=== PATIENT | female | born 1965 | race Caucasian/White ===

== ENCOUNTER 2016-10-11 15:50 | Emergency (ER) | payer MEDICAID ==
[2016-05-31 10:30] VITALS: BMI 49.1
[~2016-10-11 15:50] MED LIST: ADVIL200 MG PO; ALTACE5 MG PO; AMITRIPTYLINE100 MG PO; DEXILANT60 MG PO; ELAVIL10 MG PO; ESTRADERM 0.00.05 MG TD; GLUCOPHAGE1000 MG PO; HYDROCHLOROTHIA25 MG PO; HYDROCODON-ACE1 EAC7 PO; HYDROCODONE-APA1 TAB PO; PEPCID20 MG PO; PERCOCET 10/3251 TA1 PO; PRILOSEC20 MG PO; SYNTHROID100 MCG PO; SYNTHROID125 MCG PO; TANZEUM50 MG/0.5 SC; TOPAMAX25 MG PO; TOPROL XL50 MG PO; ULTRAM50 MG PO; VALIUM5 MG PO; ZESTRIL10 MG PO; ZESTRIL20 MG PO; ZOLOFT50 MG PO; ZYRTEC10 M1 PO
== END 2016-10-11 17:53 | disposition home or self-care (01) ==
LOC: D.ER 15:50
DX: S29.012A Strain of muscle and tendon of back wall of thorax, initial encounter (principal); X58.XXXA Exposure to other specified factors, initial encounter; Y93.89 Activity, other specified; Y92.89 Other specified places as the place of occurrence of the external cause; J02.9 Acute pharyngitis, unspecified; I10 Essential (primary) hypertension; F32.9 Major depressive disorder, single episode, unspecified

== ENCOUNTER 2016-10-22 07:48 | Emergency (ER) | payer MEDICAID ==
[~2016-10-22 07:48] MED LIST changes: -SYNTHROID100 MCG PO
[2016-10-22 08:33] LABS: BASOPHILS 0.3 % (0.0-2.0); EOSINOPHILS 3.4 % (0-7); HEMATOCRIT 39.5 % (36.0-48.0); HEMOGLOBIN 12.9 g/dL (12-16); IMMATURE GRANULOCYTES 0.2 % (0-5); LYMPHOCYTES 19.8 % (15-50); MCH 28.3 pg (26.0-34.0); MCHC 32.7 g/dL (31.0-37.0); MCV 86.6 fL (80.0-100.0); MEAN PLATELET VOLUME 11.3 fL (7.4-10.4); MONOCYTES 7.3 % (2-11); PLATELET COUNT 245 10x3/uL (130-400); RBC 4.56 10x6/uL (4.00-5.40); RDW 14.9 % (11.5-14.5); WBC 10.2 10x3/uL (4.8-10.8)
[2016-10-22 08:43] LABS: ALBUMIN 2.9 g/dL (3.4-5.0); ANION GAP 12.7 mmol/L (8-16); BILIRUBIN - TOTAL 0.5 mg/dL (0.2-1.3); CALCIUM 9.3 mg/dL (8.5-10.1); CREATININE - SERUM 1.4 mg/dL (0.6-1.3); POTASSIUM - SERUM 3.7 mmol/L (3.5-5.1); PROTEIN - SERUM 8.4 g/dL (6.4-8.2)
[2016-10-22 11:19] LABS: APPEARANCE SLT CLOUDY (CLEAR); COLOR YELLOW (YELLOW); GLUCOSE NEGATIVE (NEGATIVE); LEUKOCYTE ESTERASE NEGATIVE (NEGATIVE); NITRITE NEGATIVE (NEGATIVE); PROTEIN 1+ mg/dL (NEGATIVE)
[2016-10-22 11:21] LABS: BACTERIA MODERATE /hpf (NONE SEEN); BILIRUBIN NEGATIVE (NEGATIVE); GRANULAR CAST OCC /lpf (NONE SEEN); HYALINE CAST 0-5 /lpf (NONE SEEN); KETONE NEGATIVE (NEGATIVE); MUCUS <1+ /lpf (NONE SEEN); RED CELLS - URINE NONE SEEN /hpf (0-5); UROBILINOGEN NORMAL (NORMAL); WHITE CELLS - URINE RARE /hpf (0-5)
== END 2016-10-22 11:05 | disposition home or self-care (01) ==
LOC: D.ER 07:48
PROVIDERS: Emergency Medicine
DX: K76.0 Fatty (change of) liver, not elsewhere classified (principal); K85.90 Acute pancreatitis without necrosis or infection, unspecified; I10 Essential (primary) hypertension; F32.9 Major depressive disorder, single episode, unspecified; E11.9 Type 2 diabetes mellitus without complications

== ENCOUNTER 2016-11-18 13:11 | Emergency (ER) | payer MEDICAID ==
[2016-05-31 10:30] VITALS: BMI 49.1
[~2016-11-18 13:11] MED LIST changes: +SYNTHROID100 MCG PO
== END 2016-11-18 16:26 | disposition home or self-care (01) ==
LOC: D.ER 13:11
DX: S60.221A Contusion of right hand, initial encounter (principal); X58.XXXA Exposure to other specified factors, initial encounter; Y93.89 Activity, other specified; Y92.89 Other specified places as the place of occurrence of the external cause; I10 Essential (primary) hypertension; F17.200 Nicotine dependence, unspecified, uncomplicated

== ENCOUNTER 2017-02-19 10:17 | Day surgery (SDC) | payer MEDICAID ==
[~2017-02-19] VITALS: Ht 175.3 cm; Wt 146.8 kg
[~2017-02-19 10:17] MED LIST changes: -SYNTHROID100 MCG PO
[2017-02-19 11:21] LABS: BASOPHILS 0.3 % (0-2); EOSINOPHILS 2.2 % (0-7); HEMATOCRIT 36.6 % (36.0-48.0); HEMOGLOBIN 12.5 g/dL (12-16); IMMATURE GRANULOCYTES 0.7 % (0-5); LYMPHOCYTES 30.2 % (15-50); MCH 28.6 pg (26.0-34.0); MCHC 34.2 g/dL (31.0-37.0); MCV 83.8 fL (80.0-100.0); MEAN PLATELET VOLUME 11.8 fL (7.4-10.4); MONOCYTES 8.5 % (2-11); NEUTROPHILS 58.1 % (40-80); PLATELET COUNT 270 10x3/uL (130-400); RBC 4.37 10x6/uL (4.00-5.40); RDW 14.3 % (11.5-14.5); WBC 5.9 10x3/uL (4.8-10.8)
[2017-02-19 11:23] LABS: APTT 28.5 SECONDS (22.8-39.4); INR 1.02 (0.85-1.17); PROTIME 13.2 SECONDS (11.6-15.0)
[2017-02-19 11:24] LABS: ALBUMIN 3.1 g/dL (3.4-5.0); ANION GAP 13.5 mmol/L (8-16); BILIRUBIN - TOTAL 0.64 mg/dL (0.2-1.3); CARBON DIOXIDE 25.9 mmol/L (21.0-32.0); CREATININE - SERUM 1.5 mg/dL (0.6-1.3); POTASSIUM - SERUM 3.4 mmol/L (3.5-5.1); PROTEIN - SERUM 7.9 g/dL (6.4-8.2)
[2017-02-19] MEDS ORDERED: GLUCOPHAGE1000 MG PO (11:50)
[2017-02-19] MEDS ORDERED: PRAVACHOL20 MG PO (11:50)
[2017-02-19] MEDS ORDERED: TOPAMAX25 MG PO (11:51)
[2017-02-19] MEDS ORDERED: ZESTORETIC 20/21 TAB PO (11:52)
[2017-02-19] MEDS ORDERED: BAYER CHEWABLE81 MG PO (11:53)
[2017-02-19 12:01] VITALS: BP 131/85; Ht 175.3 cm; Wt 146.8 kg
--- NOTE | 2017-02-20 14:43 | OP ---
PATIENT NAME: ROBER ANDINO MEDICAL RECORD: [id number] :63 LOCATION:D.OPS ADMISSION DATE: SURGEON: INES YBARRA DO DATE OF OPERATION: 02/19/2017 PROCEDURE: Colonoscopy with polypectomy and biopsy. INDICATIONS FOR PROCEDURE: History of colon polyps, lower abdominal pain and change in bowel habits consisting of straining/occasional constipation. SCOPE: Olympus video pediatric colonoscope. MEDICATIONS: Propofol 530 mg IV per anesthesia. WITHDRAWAL TIME: 12 minutes. ESTIMATED BLOOD LOSS: Minimal. COMPLICATIONS: None. FINDINGS: Informed consent was given. The patient was made comfortable with the above medication. After reaching an adequate level of sedation by slow IV push, the patient was placed on her left side. A digital rectal examination was performed and was normal. The endoscope was then advanced under direct visualization through the rectum to the terminal ileum. The scope was slowly withdrawn and mucosa was carefully examined. The prep quality was excellent. In the cecum, there was a single superficial diminutive ulcer measuring approximately 2 mm in diameter. There were no surrounding ulcers or erythematous plaques. The terminal ileum appeared normal. One cold forcep biopsy was taken of the ulcer successfully. There was no significant bleeding from the site. There was a rectal polyp, which was benign appearing and sessile. It measured approximately 6 mm in diameter. It was removed in 1 piece using hot snare and completely retrieved. There was evidence of mild to moderate diverticulosis of the descending and sigmoid colon without evidence of diverticulitis. Retroflexion was performed in the rectum with visualization of nonbleeding internal hemorrhoids. The scope was then withdrawn from the patient. The patient tolerated the procedure well and there were no complications. IMPRESSION: 1. A single superficial ulcer in the cecum, biopsies taken. 2. Diverticulosis of the descending and sigmoid colon. 3. A single benign-appearing rectal polyp removed with a hot snare. 4. Nonbleeding internal hemorrhoids. PLAN AND RECOMMENDATIONS: 1. Discharge home when recovery parameters are met. 2. Follow up on biopsy specimen results. 3. Recommend a high fiber diet and continuing MiraLax as needed for constipation. 4. If no improvement is made with the MiraLax, consider trial of Linzess 145 or 290 mcg daily. 5. Recall colonoscopy in 5 years based on a probable tubular adenomatous polyp. If the pathology returns different than expected, recall may be changed. OPERATIVE REPORT [id number] ROBER ANDINO TRANSINT:[id number] Voice Confirmation ID: [id number] DOCUMENT ID: [id number] INES YBARRA DO at 1443 CC: [id number] DICTATION DATE: 02/19/17 1343 LIP CUTTER: 02/19/17 1655 [facility] 02/19/17 [place] [id number]
== END 2017-02-19 14:29 | disposition home or self-care (01) ==
LOC: D.OPS 10:17
PROVIDERS: Anesthesiology
DX: K63.3 Ulcer of intestine (principal); K57.30 Diverticulosis of large intestine without perforation or abscess without bleeding; K62.1 Rectal polyp; K64.8 Other hemorrhoids; Z01.812 Encounter for preprocedural laboratory examination

== ENCOUNTER 2017-03-12 06:42 | Day surgery (SDC) | payer MEDICAID ==
[~2017-03-12] VITALS: Ht 175.3 cm; Wt 136.4 kg
[~2017-03-12 06:42] MED LIST changes: +BAYER CHEWABLE81 MG PO; +PRAVACHOL20 MG PO; +ZESTORETIC 20/21 TAB PO
[2017-03-12 07:32] LABS: HEMATOCRIT 38.2 % (36.0-48.0); HEMOGLOBIN 12.8 g/dL (12-16); MCH 28.6 pg (26.0-34.0); MCHC 33.5 g/dL (31.0-37.0); MCV 85.5 fL (80.0-100.0); MEAN PLATELET VOLUME 11.5 fL (7.4-10.4); RBC 4.47 10x6/uL (4.00-5.40); RDW 14.2 % (11.5-14.5); WBC 6.9 10x3/uL (4.8-10.8)
[2017-03-12 07:59] LABS: ANION GAP 15.7 mmol/L (8-16); CALCIUM 9.6 mg/dL (8.5-10.1); CARBON DIOXIDE 23.8 mmol/L (21.0-32.0); CREATININE - SERUM 1.6 mg/dL (0.6-1.3); POTASSIUM - SERUM 3.5 mmol/L (3.5-5.1)
[2017-03-12 08:28] VITALS: BP 144/84; Ht 175.3 cm; Wt 136.4 kg
--- NOTE | 2017-03-12 11:52 | NUR ---
1030-RECD TO ROOM FROM GI LAB, DROWSY. RESP WITH EASE. DR YBARRA IN TO REPORT TO FAMILY. 1100-ALERT. FULL LIQUIDS SERVED. 1130-UP TO BATHROOM, VOIDS, IV D/C AND D/C INSTRUCTIONS REVIEWED. 1140-D/C VIA WHEELCHAIR WITH FAMILY
--- NOTE | 2017-03-13 09:13 | OP ---
PATIENT NAME: ROBER ANDINO MEDICAL RECORD: [id number] :63 LOCATION:[facility] ADMISSION DATE: SURGEON: INES YBARRA DO DATE OF OPERATION: 03/12/2017 PROCEDURE: EGD with biopsies. INDICATIONS FOR PROCEDURE: Right upper quadrant abdominal pain, dysphagia and heartburn. SCOPE: Tedcas video gastroscope. MEDICATIONS: Propofol 300 mg IV per anesthesia. ESTIMATED BLOOD LOSS: Minimal. COMPLICATIONS: None. FINDINGS: Informed consent was given. The patient was made comfortable with the above medication. After reaching an adequate level of sedation by slow IV push, the patient was placed on her left side. The endoscope was then advanced under direct visualization through the mouth to the second portion of the duodenum. The upper, middle and lower thirds of the esophagus appeared normal. At the GE junction, there was evidence of LA class B reflux-induced esophagitis. There was a single site of a very superficial ulceration at the GE junction. Biopsies were taken of the esophagitis to submit for histology. The endoscope was advanced beyond the GE junction into the stomach and retroflexed to view the cardia, where a small sliding hiatal hernia was present. The fundus and body of the stomach appeared normal. In the antrum and prepyloric region, there was some erythema and granularity consistent with gastritis. Biopsies were taken to submit for histology and to rule out H. pylori. There was a superficial ulceration located in the prepyloric region. There was no bleeding stigmata associated with this ulcer. Scope was advanced beyond the pylorus into the duodenum. The second portion of the duodenum appeared normal. In the first portion of the duodenum, there was a subepithelial lesion. A single biopsy was taken of the lesion, which will likely be just superficial mucosa. The scope was then withdrawn from the patient. The patient tolerated the procedure well and there were no complications. IMPRESSION: 1. LA class B reflux-induced esophagitis. 2. Small sliding hiatal hernia. 3. Gastric ulcer in the prepyloric region. 4. Erythema and granularity of the stomach consistent with gastritis. Biopsies pending. 5. Subepithelial lesion in the first portion of the duodenum. Biopsies pending. PLAN AND RECOMMENDATIONS: 1. Discharge home when recovery parameters are met. 2. GERD diet and reflux precautions. 3. Continue current medications. 4. Protonix 40 mg daily times 8 weeks. 5. Zantac 150 mg at bedtime times 30 days. 6. Carafate suspension 1 gram a.c. and h.s. times 10 days. OPERATIVE REPORT [id number] ROBER ANDINO 7. Follow up biopsy specimen results for further recommendations. TRANSINT:[id number] Voice Confirmation ID: [id number] DOCUMENT ID: [id number] INES YBARRA DO at 0913 CC: [id number] DICTATION DATE: 03/12/17 1021 BODY TECHNICIAN/PAINTER: 03/12/17 1601 [facility] 03/12/17 [place] [id number] [place] [address]
== END 2017-03-12 11:40 | disposition home or self-care (01) ==
LOC: D.OPS 06:42
PROVIDERS: Anesthesiology
DX: R13.10 Dysphagia, unspecified (principal); R10.11 Right upper quadrant pain; R12 Heartburn; K44.9 Diaphragmatic hernia without obstruction or gangrene; K21.0 Gastro-esophageal reflux disease with esophagitis; K25.9 Gastric ulcer, unspecified as acute or chronic, without hemorrhage or perforation; I10 Essential (primary) hypertension; E11.9 Type 2 diabetes mellitus without complications; F17.200 Nicotine dependence, unspecified, uncomplicated; E03.9 Hypothyroidism, unspecified; Z01.812 Encounter for preprocedural laboratory examination

== ENCOUNTER → 2017-06-25 12:41 | Outpatient (CLI) | payer MEDICAID ==
[2017-03-12 08:28] VITALS: BMI 44.4
== END | disposition home or self-care (01) ==
LOC: D.CT 12:41
DX: R91.1 Solitary pulmonary nodule (principal)

== ENCOUNTER → 2017-07-18 07:24 | Outpatient (CLI) | payer MEDICAID ==
[2017-03-12 08:28] VITALS: BMI 44.4
== END | disposition home or self-care (01) ==
LOC: D.CT 07:24
DX: N28.1 Cyst of kidney, acquired (principal)

== ENCOUNTER 2017-09-04 07:28 | Emergency (ER) | payer MEDICAID ==
[2017-03-12 08:28] VITALS: BMI 44.4
[2017-09-04 08:26] LABS: HEMATOCRIT 38.3 % (36.0-48.0); HEMOGLOBIN 12.8 g/dL (12-16); LYMPHOCYTES 29.4 % (15-50); MCH 28.8 pg (26.0-34.0); MCHC 33.4 g/dL (31.0-37.0); MCV 86.3 fL (80.0-100.0); MEAN PLATELET VOLUME 10.5 fL (7.4-10.4); NEUTROPHILS 55.7 % (40-80); PLATELET COUNT 215 10x3/uL (130-400); RBC 4.44 10x6/uL (4.00-5.40)
== END 2017-09-04 09:00 | disposition home or self-care (01) ==
LOC: D.ER 07:28
PROVIDERS: Family Medicine
DX: J06.9 Acute upper respiratory infection, unspecified (principal); R06.00 Dyspnea, unspecified; J98.01 Acute bronchospasm; I10 Essential (primary) hypertension; E11.9 Type 2 diabetes mellitus without complications

== ENCOUNTER → 2017-10-23 17:33 | Outpatient (CLI) | payer MEDICARE ==
[2017-03-12 08:28] VITALS: BMI 44.4
== END | disposition home or self-care (01) ==
LOC: D.LABREF 17:33
DX: R31.9 Hematuria, unspecified (principal)

== ENCOUNTER 2017-10-29 10:10 | Emergency (ER) | payer OTHER, MEDICAID ==
[2017-03-12 08:28] VITALS: BMI 44.4
[2017-10-29 14:11] LABS: BASOPHILS 0.4 % (0-2); EOSINOPHILS 2.8 % (0-7); HEMATOCRIT 40.2 % (36.0-48.0); HEMOGLOBIN 13.5 g/dL (12-16); IMMATURE GRANULOCYTES 0.2 % (0-5); LYMPHOCYTES 29.6 % (15-50); MCH 28.8 pg (26.0-34.0); MCHC 33.6 g/dL (31.0-37.0); MCV 85.7 fL (80.0-100.0); MEAN PLATELET VOLUME 11.4 fL (7.4-10.4); MONOCYTES 7.1 % (2-11); NEUTROPHILS 59.9 % (40-80); PLATELET COUNT 235 10x3/uL (130-400); RBC 4.69 10x6/uL (4.00-5.40); RDW 14.6 % (11.5-14.5); WBC 4.9 10x3/uL (4.8-10.8)
[2017-10-29 14:27] LABS: ALBUMIN 2.7 g/dL (3.4-5.0); ALKALINE PHOSPHATASE 126 U/L (46-116); ALT (SGPT) 51 U/L (10-68); BILIRUBIN - TOTAL 0.58 mg/dL (0.2-1.3); CALC OSMOLALITY 280 mosm/kg (275-300); CALCIUM 8.8 mg/dL (8.5-10.1); CARBON DIOXIDE 30.9 mmol/L (21.0-32.0); CHLORIDE - SERUM 104 mmol/L (98-107); CREATININE - SERUM 1.1 mg/dL (0.6-1.3); GLUCOSE 130 mg/dL (74-106); POTASSIUM - SERUM 3.2 mmol/L (3.5-5.1); PROTEIN - SERUM 7.2 g/dL (6.4-8.2); SODIUM 141 mmol/L (136-145); UREA NITROGEN 8 mg/dL (7-18); eGFR NON AFRICAN AMERICAN 55 mL/min (90-120)
[2017-10-29 14:35] LABS: TROPONIN-I < 0.017 ng/mL (0.000-0.060)
== END 2017-10-29 15:51 | disposition home or self-care (01) ==
LOC: D.ER 10:10
PROVIDERS: Physician Assistant
DX: G43.909 Migraine, unspecified, not intractable, without status migrainosus (principal); I10 Essential (primary) hypertension; E11.9 Type 2 diabetes mellitus without complications; E87.6 Hypokalemia

== ENCOUNTER → 2018-01-24 13:14 | Outpatient (CLI) | payer OTHER, MEDICAID ==
[2017-03-12 08:28] VITALS: BMI 44.4
== END | disposition home or self-care (01) ==
LOC: D.LAB 13:00 → D.RT 14:00
DX: D86.0 Sarcoidosis of lung (principal)

== ENCOUNTER → 2018-02-12 19:09 | Outpatient (CLI) | payer OTHER, MEDICAID ==
[2017-03-12 08:28] VITALS: BMI 44.4
== END | disposition home or self-care (01) ==
LOC: D.SLEEP 19:09
DX: G47.33 Obstructive sleep apnea (adult) (pediatric) (principal)

== ENCOUNTER → 2018-03-13 19:05 | Outpatient (CLI) | payer MEDICARE, MEDICAID ==
[2017-03-12 08:28] VITALS: BMI 44.4
== END | disposition home or self-care (01) ==
LOC: D.SLEEP 19:05
DX: G47.33 Obstructive sleep apnea (adult) (pediatric) (principal)

== ENCOUNTER 2018-06-03 09:48 | Day surgery (SDC) | payer MEDICARE, MEDICAID ==
[~2018-06-03] VITALS: Ht 175.3 cm; Wt 117.7 kg
--- NOTE | ~2018-06-03 | OP ---
PATIENT NAME: ROBER ANDINO MEDICAL RECORD: [id number] :63 LOCATION:[facility] ADMISSION DATE: SURGEON: INES YBARRA DO DATE OF OPERATION: 06/03/2018 PROCEDURE: EGD with biopsies. INDICATIONS FOR PROCEDURE: History of subepithelial lesion in the duodenum. SCOPE: Olympus video gastroscope. MEDICATIONS: Propofol 180 mg IV per anesthesia. ESTIMATED BLOOD LOSS: Minimal. COMPLICATIONS: None. FINDINGS: Informed consent was given. The patient was made comfortable with the above medication. After reaching an adequate level of sedation by slow IV push, the patient was placed on her left side. The endoscope was advanced under direct visualization through the mouth to the second portion of the duodenum. The upper, middle, and lower thirds of the esophagus appeared normal. At the GE junction, there was evidence of LA class C reflux-induced esophagitis. A single cold forceps biopsy was taken at the GE junction to rule out the presence of Guardado's esophagus. The endoscope was advanced beyond the GE junction into the stomach and retroflexed to view the cardia, where a very small sliding hiatal hernia was present. Throughout the stomach, there was some mild granularity and erythema consistent with possible gastritis. Random cold forceps biopsies were taken to submit for histopathology and to rule out the presence of H. pylori. The endoscope was advanced beyond the pylorus into the duodenum. The duodenal bulb appeared normal. In the first portion of the duodenum, there was a subepithelial lesion, which has previously been visualized. This measured approximately 1-1.2 cm in size. No biopsies were taken today as biopsies have been taken in the past with negative tissue acquisition due to the subepithelial nature. The second portion of the duodenum appeared normal. The endoscope was then withdrawn from the patient. The patient tolerated the procedure well and there were no complications. IMPRESSION: 1. LA class C reflux-induced esophagitis. 2. Small sliding hiatal hernia. 3. Gastritis. 4. Subepithelial lesion in the first portion of the duodenum, which measured approximately 1-1.2 cm in size and is unchanged from the previous examination 1 year ago. Based on its location and amenability to evaluation, will offer a referral to [facility] for consideration of endoscopic ultrasound and biopsy of the tissue and/or removal. We will discuss this with the patient. 5. We will provide another prescription for Prilosec 40 mg daily or as needed for reflux symptoms. 6. Gastroesophageal reflux disease diet and reflux precautions. 7. Continue current medications. TRANSINT:[id number] Voice Confirmation ID: [id number] DOCUMENT ID: [id number] OPERATIVE REPORT [id number] ROBER ANDINO,INES Felix DO at 1433 CC: [id number] DICTATION DATE: 06/03/18 1237 HALL MANAGER: 06/03/18 1254 [facility] [place] 06/03/18 [place] [id number] [place] [address]
[2018-06-03 10:29] LABS: HEMATOCRIT 39.1 % (36.0-48.0); HEMOGLOBIN 13.2 g/dL (12-16); MCH 28.6 pg (26.0-34.0); MCHC 33.8 g/dL (31.0-37.0); MCV 84.8 fL (80.0-100.0); MEAN PLATELET VOLUME 11.3 fL (7.4-10.4); RBC 4.61 10x6/uL (4.00-5.40); WBC 7.5 10x3/uL (4.8-10.8)
[2018-06-03 10:35] LABS: ANION GAP 10.4 mmol/L (8-16); CALCIUM 9.7 mg/dL (8.5-10.1); CARBON DIOXIDE 30.9 mmol/L (21.0-32.0); CREATININE - SERUM 1.5 mg/dL (0.6-1.3); POTASSIUM - SERUM 3.3 mmol/L (3.5-5.1)
[2018-06-03] MEDS ORDERED: VICTOZA0.6 MG/0.1 SQ (10:37)
[2018-06-03 10:46] VITALS: BP 148/79; Ht 175.3 cm; Wt 117.7 kg
[2018-06-03 10:52] LABS: APTT 32.3 SECONDS (22.8-39.4); INR 1.02 (0.85-1.17); PROTIME 13.1 SECONDS (11.6-15.0)
== END 2018-06-03 13:40 | disposition home or self-care (01) ==
LOC: D.OPS 09:48
PROVIDERS: Internal Medicine Gastroenterology
DX: K21.0 Gastro-esophageal reflux disease with esophagitis (principal); K44.9 Diaphragmatic hernia without obstruction or gangrene; K29.50 Unspecified chronic gastritis without bleeding; Z01.812 Encounter for preprocedural laboratory examination

== ENCOUNTER 2018-06-13 13:41 | Emergency (ER) | payer MEDICARE, MEDICAID ==
[~2018-06-13] VITALS: Ht 175.3 cm; Wt 130.5 kg
[~2018-06-13 13:41] MED LIST changes: +VICTOZA0.6 MG/0.1 SQ
[2018-06-13 14:08] VITALS: BP 125/70; Ht 175.3 cm; Wt 130.5 kg
[2018-06-13 14:49] LABS: BASOPHILS 0.3 % (0-2); EOSINOPHILS 5.1 % (0-7); HEMATOCRIT 38.4 % (36.0-48.0); IMMATURE GRANULOCYTES 0.1 % (0-5); LYMPHOCYTES 30.3 % (15-50); MCH 28.9 pg (26.0-34.0); MCHC 33.9 g/dL (31.0-37.0); MCV 85.3 fL (80.0-100.0); MONOCYTES 8.7 % (2-11); NEUTROPHILS 55.5 % (40-80); RDW 14.2 % (11.5-14.5); WBC 6.7 10x3/uL (4.8-10.8)
[2018-06-13 14:52] LABS: PLATELET COUNT 245 10x3/uL (130-400)
[2018-06-13 15:10] LABS: ALBUMIN 3.2 g/dL (3.4-5.0); ANION GAP 11.1 mmol/L (8-16); BILIRUBIN - TOTAL 0.81 mg/dL (0.2-1.3); CARBON DIOXIDE 31.2 mmol/L (21.0-32.0); CREATININE - SERUM 1.4 mg/dL (0.6-1.3); POTASSIUM - SERUM 3.3 mmol/L (3.5-5.1); PROTEIN - SERUM 7.8 g/dL (6.4-8.2)
== END 2018-06-13 19:03 | disposition left against medical advice (07) ==
LOC: D.ER 13:41
PROVIDERS: Family Medicine
DX: R53.1 Weakness (principal)

== ENCOUNTER 2018-09-10 05:50 | Day surgery (SDC) | payer MEDICARE, MEDICAID ==
[2018-09-09 14:27] LABS: ANION GAP 13.9 mmol/L (8-16); CALCIUM 9.1 mg/dL (8.5-10.1); CARBON DIOXIDE 27.7 mmol/L (21.0-32.0); CREATININE - SERUM 1.6 mg/dL (0.6-1.3); POTASSIUM - SERUM 3.6 mmol/L (3.5-5.1)
[2018-09-09 14:43] LABS: HEMATOCRIT 37.9 % (36.0-48.0); HEMOGLOBIN 12.7 g/dL (12-16); MCH 27.9 pg (26.0-34.0); MCHC 33.5 g/dL (31.0-37.0); MCV 83.3 fL (80.0-100.0); MEAN PLATELET VOLUME 11.9 fL (7.4-10.4); RBC 4.55 10x6/uL (4.00-5.40); RDW 13.7 % (11.5-14.5); WBC 8.6 10x3/uL (4.8-10.8)
[~2018-09-10] VITALS: Ht 175.3 cm; Wt 124.7 kg
[2018-09-10] MEDS ORDERED: AMITRIPTYLINE H50 MG PO (06:16)
[2018-09-10] MEDS ORDERED: LEVOXYL175 MCG PO (06:19)
[2018-09-10] MEDS ORDERED: URSO FORTE500 MG PO (06:22)
[2018-09-10] MEDS ORDERED: CATAPRES0.1 MG PO (06:26)
[2018-09-10] MEDS ORDERED: OMEPRAZOLE40 MG PO (06:27)
[2018-09-10] MEDS ORDERED: BUSPIRONE HCL7.5 MG PO (06:27)
[2018-09-10] MEDS ORDERED: CYCLOBENZAPRINE10 MG PO (06:28)
[2018-09-10] MEDS ORDERED: COZAAR100 MG PO (06:28)
[2018-09-10] MEDS ORDERED: VICTOZA0.6 MG/0.1 SC (06:31)
[2018-09-10] MEDS ORDERED: PRO-AIR INH (06:36)
[2018-09-10 06:50] VITALS: BP 126/81; Ht 175.3 cm; Wt 124.7 kg
--- NOTE | 2018-09-10 12:00 | OP ---
PATIENT NAME: ROBER ANDINO MEDICAL RECORD: [id number] :63 LOCATION:[facility] ADMISSION DATE: SURGEON: KAMARI HANSEN MD DATE OF OPERATION: 09/10/2018 SURGEON: Kamari Hansen MD ANESTHESIA: General anesthesia by Moses Chahal. PROCEDURE: Cystoscopy, pubovaginal sling with [employer] Obtryx mesh graft. DIAGNOSIS: Female stress urinary incontinence. FINDINGS: On cystoscopy, cystitis cystica and glandularis. Single ureteral orifices bilaterally with no bladder tumors seen. No bladder injury noted. SPECIMENS: None. BLOOD LOSS: Minimal. CLINICAL HISTORY: This is a 53-year-old female, A0, who has female stress urinary incontinence. I have seen her for over 1 year. At that time, she had breathing issues due to sarcoidosis and sleep apnea, which were not managed yet. She has since seen Dr. Moe about this and her breathing is better now. She was morbidly obese last year and she is started on Victoza for diabetes control. She has lost about 30 pounds of weight and now she is down to 275 pounds. Her stress urinary incontinence symptoms have not changed. On physical examination, she has stress urinary incontinence with a positive Hector test. She has previously had a hysterectomy. There is no significant cystocele. There is a very minor degree of rectocele. She comes today to have a pubovaginal sling performed. She is aware of the risks of mesh use including graft infection, graft erosion into the bladder or urethra, graft extrusion into the vagina, pain and dyspareunia. She is not allergic to any medications. She was given Ancef director of reservations to the OR. DESCRIPTION OF PROCEDURE: The patient was given induction of general anesthesia. She was then placed in the dorsal lithotomy position. A Acevedo catheter was put into the bladder and put to bag drainage. The #2 nylon sutures were used to retract the labia majora laterally. These were anchored to the medial thighs. The anterior vaginal wall was infiltrated using Pitressin solution. Twenty units of Pitressin was dissolved in 100 mL of injectable normal saline. A 10 cc of the solution was used for hydrodissection around the urethra and bladder neck. A T-shaped incision was made on the anterior vaginal wall. The crossbar of the T was about 1 cm away from the urethral meatus. The vertical bar of the T runs along the anterior vaginal wall midline. This was initially made using a #15 blade. We then used tenotomy scissors circumferentially around the incision to raise vaginal mucosal flaps. The dissection was carried laterally through the pubocervical fascia with Metzenbaum scissors. We were able to clean off and palpate the obturator membrane laterally, especially the anterior apex of the obturator membrane. We now landmarked for the placement of our trocars. This is inferior to the insertion of the adductor longus muscle on to the descending pubic ramus. A grace was made here on either side using a marking pen. Stab incisions were made using a #15 blade. The trocars were then passed deep to the descending pubic ramus and out OPERATIVE REPORT [id number] ROBER ANDINO through the anterior apex of the obturator membrane and into the vaginal dissection space where it was intersected by a finger in the vaginal dissection space. The trocar was then brought out through the vaginal incision. The end of the Obtryx graft was attached to the trocar. By pulling the trocar back out, we accomplished a transobturator passage of the graft arm. This was done on each side. We then removed the Acevedo catheter and performed cystoscopy using a 17-Kuwaiti cystoscope. No bladder injury was seen. Other cystoscopic findings are as outlined above. The bladder was filled to about 500 mL of capacity through the cystoscope. The scope was then removed. By applying manual pressure suprapubically, we could elicit drainage per the urethra. The tab on the midpoint of the pubovaginal sling was placed under the mid urethra. The tab was then cut off. As we continue to apply suprapubic pressure, gradually the tension on the sling was raised until there was no further leakage with manual suprapubic pressure being applied. At this point, the graft was kept lying flat under the mid urethra by tacking sutures of 4-0 Vicryl into the periurethral fascia. This was done at the proximal and distal portion of the width of the graft. The clear plastic sheath material was removed from each graft arm. Each of the graft arm was cut where it exited the groin skin. The groin was closed with simple interrupted 4-0 Vicryl on each side. The vaginal wound was irrigated using normal saline. A running 4-0 Monocryl suture was used to close the vaginal incision. Packing consisting of Kerlix infiltrated with estrogen cream was placed into the vagina. The packing will be removed prior to her going home today. I will see her in followup next week to check on her voiding symptoms. TRANSINT:[id number] Voice Confirmation ID: [id number] DOCUMENT ID: [id number] KAMARI HANSEN MD at 1200 CC: [id number] DICTATION DATE: 09/10/18 1109 LAB HEAD: 09/10/18 1150 [facility] [address] [place] [id number]
--- NOTE | 2018-09-10 15:56 | NUR ---
1450 DRESSED, AWAKE, & ALERT. GIVEN DISCHARGE INFORMATION INCLUDING RX: NORCO 5/325MG FOR PAIN, MED REC, [facility] D/C INSTRUCTIONS, RTC APPT., CYSTOSCOPY D/C INSTRUCTIONS, & URETHRAL SUSPENSION D/C INSTRUCTIONS. QUESTIONS ADDRESSED & ANSWERED. PT VOICED UNDERSTANDING. TO PRIVATE CAR PER WHEELCHAIR BY VOLUNTEER. HOME WITH , MR. ANDINO. Silas LANG R.N.
== END 2018-09-10 14:50 | disposition home or self-care (01) ==
LOC: D.OPS 05:50 → D.PAN 07:30 → D.OPS 09:00
PROVIDERS: Anesthesiology; ATTEND Urology
DX: N39.3 Stress incontinence (female) (male) (principal); N30.80 Other cystitis without hematuria; D86.9 Sarcoidosis, unspecified; G47.30 Sleep apnea, unspecified; E66.01 Morbid (severe) obesity due to excess calories; Z01.812 Encounter for preprocedural laboratory examination

== ENCOUNTER → 2018-09-18 20:02 | Outpatient (CLI) | payer MEDICARE, MEDICAID ==
[2018-09-10 06:50] VITALS: BMI 40.7
[~2018-09-18 20:02] MED LIST changes: +AMITRIPTYLINE H50 MG PO; +BUSPIRONE HCL7.5 MG PO; +CATAPRES0.1 MG PO; +COZAAR100 MG PO; +CYCLOBENZAPRINE10 MG PO; +LEVOXYL175 MCG PO; +OMEPRAZOLE40 MG PO; +PRO-AIR INH; +URSO FORTE500 MG PO; +VICTOZA0.6 MG/0.1 SC
[2018-09-18 21:54] LABS: APPEARANCE HAZY (CLEAR); BACTERIA MANY /hpf (NONE SEEN); BILIRUBIN NEGATIVE (NEGATIVE); COLOR YELLOW (YELLOW); EPITHELIAL CELLS 0-5 /hpf (0-5); GLUCOSE NEGATIVE (NEGATIVE); KETONE NEGATIVE (NEGATIVE); NITRITE POSITIVE (NEGATIVE); PROTEIN NEGATIVE (NEGATIVE); RED CELLS - URINE 0-5 /hpf (0-5); UROBILINOGEN NORMAL (NORMAL); WHITE CELLS - URINE 25-50 /hpf (0-5)
== END | disposition home or self-care (01) ==
LOC: D.LABREF 20:02
PROVIDERS: ATTEND Urology
DX: D72.829 Elevated white blood cell count, unspecified (principal); R31.9 Hematuria, unspecified

== ENCOUNTER → 2019-04-23 10:00 | Outpatient (CLI) | payer MEDICARE, MEDICAID ==
[2018-09-10 06:50] VITALS: BMI 40.7
== END | disposition home or self-care (01) ==
LOC: D.MAMMO 04-16 15:30
PROVIDERS: ATTEND Clinical Nurse Specialist Family Health
DX: Z12.31 Encounter for screening mammogram for malignant neoplasm of breast (principal)

== ENCOUNTER 2019-07-20 06:30 | Emergency (ER) | payer MEDICARE, MEDICAID ==
[~2019-07-20] VITALS: Ht 175.3 cm; Wt 130.5 kg
[2019-07-20 06:35] VITALS: Ht 175.3 cm; Wt 130.5 kg
[2019-07-20] MEDS ORDERED: KLOR-CON 1010 MEQ PO (06:39)
[2019-07-20] MEDS ORDERED: HYDROCODON-ACE1 EA10 PO (06:40)
[2019-07-20 07:16] LABS: APPEARANCE CLEAR (CLEAR); COLOR YELLOW (YELLOW); NITRITE NEGATIVE (NEGATIVE); PROTEIN 3+ mg/dL (NEGATIVE); SPECIFIC GRAVITY 1.015 (1.005-1.020)
[2019-07-20 07:17] LABS: BILIRUBIN NEGATIVE (NEGATIVE); GLUCOSE 50 mg/dL (NEGATIVE); KETONE NEGATIVE (NEGATIVE); UROBILINOGEN NORMAL (NORMAL)
[2019-07-20 07:21] LABS: CALC OSMOLALITY 280 mosm/kg (275-300); CALCIUM 8.4 mg/dL (8.5-10.1); CARBON DIOXIDE 27.6 mmol/L (21.0-32.0); CHLORIDE - SERUM 104 mmol/L (98-107); CREATININE - SERUM 1.3 mg/dL (0.6-1.3); POTASSIUM - SERUM 3.3 mmol/L (3.5-5.1); SODIUM 140 mmol/L (136-145); UREA NITROGEN 6 mg/dL (7-18); eGFR NON AFRICAN AMERICAN 45 mL/min (90-120)
[2019-07-20 07:22] LABS: BACTERIA FEW /hpf (NEGATIVE); EPITHELIAL CELLS 0-5 /hpf (0-5); RED CELLS - URINE NONE SEEN /hpf (0-5); WHITE CELLS - URINE 0-5 /hpf (NEGATIVE)
[2019-07-20 07:22] LABS: GLUCOSE 166 mg/dL (74-106)
[2019-07-20 07:26] LABS: BASOPHILS 0.3 % (0-2); EOSINOPHILS 1.7 % (0-7); HEMATOCRIT 39.1 % (36.0-48.0); HEMOGLOBIN 12.9 g/dL (12-16); IMMATURE GRANULOCYTES 0.2 % (0-5); LYMPHOCYTES 8.1 % (15-50); MCV 84.8 fL (80.0-100.0); MEAN PLATELET VOLUME 10.2 fL (7.4-10.4); MONOCYTES 7.6 % (2-11); NEUTROPHILS 82.1 % (40-80); PLATELET COUNT 212 10x3/uL (130-400); RBC 4.61 10x6/uL (4.00-5.40); RDW 14.3 % (11.5-14.5); WBC 6.3 10x3/uL (4.8-10.8)
[2019-07-20 07:35] LABS: ALBUMIN 2.7 g/dL (3.4-5.0); ALKALINE PHOSPHATASE 157 U/L (46-116); ALT (SGPT) 34 U/L (10-68); BILIRUBIN - TOTAL 0.65 mg/dL (0.2-1.3); LIPASE 202 U/L (73-393); PROTEIN - SERUM 7.1 g/dL (6.4-8.2); TROPONIN-I < 0.017 ng/mL (0.000-0.060)
[2019-07-20] MEDS ORDERED: PROMETHAZINE W473 ML PO (08:11)
[2019-07-20] MEDS ORDERED: LEVOFLOXACIN500 MG PO (08:11)
[2019-07-20 08:24] VITALS: BP 154/90
== END 2019-07-20 08:35 | disposition home or self-care (01) ==
LOC: D.ER 06:30
PROVIDERS: Family Medicine
DX: J20.9 Acute bronchitis, unspecified (principal); E87.6 Hypokalemia; E11.9 Type 2 diabetes mellitus without complications; E07.9 Disorder of thyroid, unspecified; I10 Essential (primary) hypertension; Z79.84 Long term (current) use of oral hypoglycemic drugs

== ENCOUNTER 2019-08-13 16:12 | Emergency (ER) | payer MEDICARE, MEDICAID ==
[2019-07-20 06:35] VITALS: BMI 42.5
[~2019-08-13 16:12] MED LIST changes: +HYDROCODON-ACE1 EA10 PO; +KLOR-CON 1010 MEQ PO; +LEVOFLOXACIN500 MG PO; +PROMETHAZINE W473 ML PO
== END 2019-08-13 17:04 | disposition left against medical advice (07) ==
LOC: D.ER 16:12
DX: R20.0 Anesthesia of skin (principal)

== ENCOUNTER 2020-08-29 23:11 | Inpatient (IN) | payer MEDICARE, MEDICAID ==
[~2020-08-29] VITALS: Ht 175.3 cm; Wt 140.9 kg
[~2020-08-29 23:11] MED LIST changes: +ATIVAN0.5 MG PO; +GEMFIBROZIL600 MG PO; +NORVASC5 MG PO; +PREDNISONE5 MG PO; +PROZAC20 MG PO; +VITAMIN D31250 MCG PO
[2020-08-29] MEDS ORDERED: HUMULIN 70100 UNIT/1 SC (23:18)
[2020-08-29 23:55] LABS: HEMATOCRIT 31.5 % (36.0-48.0); HEMOGLOBIN 10.3 g/dL (12-16); LYMPHOCYTES 4.6 % (15-50); MCH 27.2 pg (26.0-34.0); MCHC 32.7 g/dL (31.0-37.0); MCV 83.3 fL (80.0-100.0); MEAN PLATELET VOLUME 10.7 fL (7.4-10.4); NEUTROPHILS 90.2 % (40-80); PLATELET COUNT 160 10x3/uL (130-400); RBC 3.78 10x6/uL (4.00-5.40); RDW 13.9 % (11.5-14.5); WBC 7.8 10x3/uL (4.8-10.8)
[2020-08-30] VITALS (8 sets, daily range): BP systolic 91–122; BP diastolic 36–60; Ht 175.3 cm; Wt 140.9 kg
[2020-08-30 00:05] LABS: INFLUENZA TYPE A NEGATIVE (NEGATIVE); INFLUENZA TYPE B NEGATIVE (NEGATIVE); SARS-CoV-2 ANTIGEN NEGATIVE- SARS-COV-2 (NEGATIVE)
[2020-08-30 00:15] LABS: CALC OSMOLALITY 283 mosm/kg (275-300); CALCIUM 8.2 mg/dL (8.5-10.1); CARBON DIOXIDE 25.1 mmol/L (21.0-32.0); CHLORIDE - SERUM 105 mmol/L (98-107); CREATININE - SERUM 1.7 mg/dL (0.6-1.3); GLUCOSE 179 mg/dL (74-106); POTASSIUM - SERUM 3.4 mmol/L (3.5-5.1); SODIUM 139 mmol/L (136-145); UREA NITROGEN 17 mg/dL (7-18); eGFR NON AFRICAN AMERICAN 33 mL/min (90-120)
[2020-08-30 00:19] LABS: APTT 30.6 SECONDS (22.8-39.4); PROTIME 13.6 SECONDS (11.6-15.0)
[2020-08-30 00:20] LABS: ALBUMIN 2.7 g/dL (3.4-5.0); ALKALINE PHOSPHATASE 133 U/L (30-120); ALT (SGPT) 36 U/L (10-68); BILIRUBIN - TOTAL 0.74 mg/dL (0.2-1.3); CKMB 0.1 U/L (0.0-3.6); CREATINE KINASE 50 UL (21-215); PRO BNP 1433 pg/mL (0-125); PROTEIN - SERUM 6.1 g/dL (6.4-8.2); TROPONIN-I 0.037 ng/mL (0.000-0.060)
[2020-08-30 00:21] LABS: INR 1.15 (0.85-1.17)
[2020-08-30 06:44] LABS: C-REACTIVE PROTEIN 17.1 mg/dL (0.0-0.9)
[2020-08-30 06:54] LABS: ERYTHROCYTE SEDIMENTATION RATE 65 mm/hr (0-30)
--- NOTE | 2020-08-30 07:05 | NUR ---
REPORT REC'D FROM SAMSON VAZQUEZ
--- NOTE | 2020-08-30 10:21 | NUR ---
DID NOT ADMIN PT'S BP MEDS D/T LOW BP - CURRENT /43.
--- NOTE | 2020-08-30 11:30 | NUR ---
ATTEMPT TO CALL REPORT. NURSE WILL RETURN CALL WHEN BACK ON THE FLOOR.
--- NOTE | 2020-08-30 11:35 | NUR ---
DID NOT ADMIN 1130 70/30 INSULIN D/T AM DOSE BEING LATE (AT 1000).
--- NOTE | 2020-08-30 12:23 | NUR ---
RECEIVED REPORT FROM LINNETTE IN THE ED.
--- NOTE | 2020-08-30 12:55 | NUR ---
RECEIVED TO ROOM VIA WHEELCHAIR AND PORTABLE OXYGEN. IV SEEN TO LEFT WRIST AREA. PLACED NS ON PUMP AND INFUSING ORDERED. UP TO BATHROOM TO VOID. WILL ADMIT.
--- NOTE | 2020-08-30 15:42 | NUR ---
IV CATH REMOVED FROM LEFT HAND WITH TIP INTACT. NEW 22 G SITED TO RIGHT HAND X 1 STICK PER THIS NURSE. TOLERATED WELL. NORCO GIVEN FOR PAIN 03/25 TO HEAD.
--- NOTE | 2020-08-30 16:40 | NUR ---
FSBS IS 122. PATIENT TO REFUSE 70/30 INSULI.
--- NOTE | 2020-08-30 17:19 | NUR ---
PATIENT HAS DONE IS EVERY TWO HOURS WHILE AWAKE WITH TIDAL VOLUME AT [id number].
--- NOTE | 2020-08-30 20:45 | NUR ---
REPORT RECEIVED, WILL CONT POC. PT A&O, UP IN BED WATCHING TV. NO S/S OF DISTRESS NOTED. RR EVEN AND UNLABORED ON 2L NC. PT DENIES NEEDS AT THIS TIME. BED LOCKED AND LOWERED, CL IN REACH. ASSESSMENT COMPLETED AT THIS TIME. WILL CONT TO MONITOR.
[2020-08-31 05:11] VITALS: BP 94/41
[2020-08-31 05:53] LABS: BASOPHILS 0.2 % (0-2); EOSINOPHILS 2.7 % (0-7); HEMATOCRIT 29.3 % (36.0-48.0); HEMOGLOBIN 9.3 g/dL (12-16); IMMATURE GRANULOCYTES 0.2 % (0-5); LYMPHOCYTE ABS# 1.02 10x3/uL (1.18-3.74); LYMPHOCYTES 17.3 % (15-50); MCH 26.8 pg (26.0-34.0); MCHC 31.7 g/dL (31.0-37.0); MCV 84.4 fL (80.0-100.0); MEAN PLATELET VOLUME 10.3 fL (7.4-10.4); MONOCYTES 13.9 % (2-11); NEUTROPHIL ABS# 3.88 10x3/uL (1.56-6.13); NEUTROPHILS 65.7 % (40-80); PLATELET COUNT 156 10x3/uL (130-400); RBC 3.47 10x6/uL (4.00-5.40); RDW 14.9 % (11.5-14.5); WBC 5.9 10x3/uL (4.8-10.8)
[2020-08-31 06:18] LABS: ALBUMIN 2.2 g/dL (3.4-5.0); ANION GAP 8.8 mmol/L (8-16); BILIRUBIN - TOTAL 0.34 mg/dL (0.2-1.3); CALCIUM 8.4 mg/dL (8.5-10.1); CARBON DIOXIDE 28.8 mmol/L (21.0-32.0); CREATININE - SERUM 1.7 mg/dL (0.6-1.3); PHOSPHOROUS 2.9 mg/dL (2.5-4.9); POTASSIUM - SERUM 3.6 mmol/L (3.5-5.1); PROTEIN - SERUM 5.9 g/dL (6.4-8.2)
[2020-08-31 07:32] VITALS: BP 107/40
[2020-08-31 11:31] VITALS: BP 140/65
[2020-08-31 16:48] VITALS: BP 131/57
[2020-08-31 20:00] VITALS: BP 141/54
--- NOTE | 2020-08-31 20:40 | NUR ---
REPORT RECEIVED, WILL CONT POC. PT A&O, UP IN BED WATCHING TV. NO S/S OF DISTRESS OBSERVED. RR EVEN & UNLABORED ON 2L. PT DENIES NEEDS AT THIS TIME. BED LOCKED AND LOWERED, CL IN REACH. ASSESSMENT COMPLETED AT THIS TIME. WILL CONT TO MONITOR.
[2020-08-31 23:11] VITALS: BP 141/54
[2020-09-01 05:24] VITALS: BP 105/51
[2020-09-01 06:48] LABS: ALBUMIN 2.1 g/dL (3.4-5.0); ANION GAP 9.5 mmol/L (8-16); BILIRUBIN - TOTAL 0.28 mg/dL (0.2-1.3); CALCIUM 8.6 mg/dL (8.5-10.1); CARBON DIOXIDE 26.9 mmol/L (21.0-32.0); CREATININE - SERUM 1.5 mg/dL (0.6-1.3); MAGNESIUM - SERUM 2.1 mg/dL (1.8-2.4); PHOSPHOROUS 2.9 mg/dL (2.5-4.9); POTASSIUM - SERUM 3.4 mmol/L (3.5-5.1); PROTEIN - SERUM 5.9 g/dL (6.4-8.2)
[2020-09-01 06:58] LABS: BASOPHILS 0.5 % (0-2); EOSINOPHILS 3.9 % (0-7); HEMATOCRIT 28.7 % (36.0-48.0); IMMATURE GRANULOCYTES 0.2 % (0-5); LYMPHOCYTE ABS# 1.18 10x3/uL (1.18-3.74); LYMPHOCYTES 26.9 % (15-50); MCH 26.2 pg (26.0-34.0); MCHC 31.4 g/dL (31.0-37.0); MCV 83.4 fL (80.0-100.0); MEAN PLATELET VOLUME 10.7 fL (7.4-10.4); MONOCYTES 10.7 % (2-11); NEUTROPHIL ABS# 2.54 10x3/uL (1.56-6.13); NEUTROPHILS 57.8 % (40-80); RBC 3.44 10x6/uL (4.00-5.40); RDW 14.6 % (11.5-14.5)
[2020-09-01 07:05] LABS: PLATELET COUNT 204 10x3/uL (130-400); WBC 4.4 10x3/uL (4.8-10.8)
[2020-09-01 08:00] VITALS: BP 124/64
[2020-09-01 12:00] VITALS: BP 122/69
[2020-09-01 15:00] VITALS: BP 142/70
[2020-09-01 20:00] VITALS: BP 132/63
--- NOTE | 2020-09-01 20:45 | NUR ---
REPORT RECEIVED, WILL CONT POC. PT A&O, UP IN BED WATCHING TV. NO S/S OF DISTRESS OBSERVED. RR EVEN & UNLABORED ON 2L. BED LOCKED AND LOWERED, CL IN REACH. ASSESSMENT COMPLETED AT THIS TIME. WILL CONT TO MONITOR.
[2020-09-01 22:11] VITALS: BP 132/63
[2020-09-02] VITALS (10 sets, daily range): BP systolic 138–160; BP diastolic 57–85
[2020-09-02 06:03] LABS: % SATURATION 18 % (15-55); IRON 42 ug/dl (35-150); TOTAL IRON BIND CAPACITY 222 ug/dl (260-445); UNSAT IRON BIND CAPACITY 180 ug/dl (150-375)
[2020-09-02 06:14] LABS: BASOPHILS 0.2 % (0-2); EOSINOPHILS 3.9 % (0-7); HEMATOCRIT 31.4 % (36.0-48.0); HEMOGLOBIN 10.1 g/dL (12-16); IMMATURE GRANULOCYTES 0.7 % (0-5); LYMPHOCYTE ABS# 1.24 10x3/uL (1.18-3.74); MCH 26.5 pg (26.0-34.0); MCHC 32.2 g/dL (31.0-37.0); MCV 82.4 fL (80.0-100.0); MEAN PLATELET VOLUME 10.7 fL (7.4-10.4); MONOCYTES 8.5 % (2-11); NEUTROPHIL ABS# 3.43 10x3/uL (1.56-6.13); NEUTROPHILS 63.7 % (40-80); RBC 3.81 10x6/uL (4.00-5.40); RDW 14.7 % (11.5-14.5); WBC 5.4 10x3/uL (4.8-10.8)
[2020-09-02 06:28] LABS: PLATELET COUNT 264 10x3/uL (130-400)
[2020-09-02 06:38] LABS: ALBUMIN 2.5 g/dL (3.4-5.0); ANION GAP 9.3 mmol/L (8-16); BILIRUBIN - TOTAL 0.31 mg/dL (0.2-1.3); CALCIUM 8.9 mg/dL (8.5-10.1); CREATININE - SERUM 1.5 mg/dL (0.6-1.3); PHOSPHOROUS 2.6 mg/dL (2.5-4.9); POTASSIUM - SERUM 3.3 mmol/L (3.5-5.1); PROTEIN - SERUM 6.8 g/dL (6.4-8.2)
--- NOTE | 2020-09-02 07:34 | NUR ---
AM ROUNDING DONE WITH PATIENT VOICING NO NEEDS AT THIS TIME. ON HEART MONITOR SHOWING SR, HR 78. ON 2L PER NC. RIGHT HAND PIV SEEN WITH NS INFUSING AT 50 CC/HR. PATIENT IS IN DROPLET COVID ISOLATION PUI. ON EP, K+ IS 3.3, WILL COVER PER PROTOCOL.
--- NOTE | 2020-09-02 08:27 | NUR ---
Nutrition Follow-up: Noted pt still c/o abd pain. No BMs recorded. Covid pending. Noted plans to d/c soon. Diet: Diabetic No PO intake recorded Wt: 310# (09/01) Labs noted: K+ 3.3, Glu 117, Alb 2.5 Meds noted: Pepcid, Colace, Prednisone, Novolin, Lasix, zinc sulfate, vit C, vit D, NS @ 50 -Encourage PO intake and honor food preferences within diet restrictions. -RD will follow up within 4-5 days.
--- NOTE | 2020-09-02 12:27 | MORECARE ---
CASE MANAGEMENT DISCHARGE SUMMARY PATIENT: ROBER ANDINO OSBALDO UNIT: [id number] ADM DATE: 08/30/20 AGE: 55 : 63 SEX: F ROOM/BED: D.[facility]7 AUTHOR: MERYL BOWMAN PHYSICIAN: REFERRING PHYSICIAN: MARIE SOTO MD DATE OF SERVICE: 09/02/20 Discharge Plan Patient Name: ROBER ANDINO [facility] [facility] 1965 Planned Disposition: Home Anticipated Discharge Date: Discharge Date: Expected LOS: Initial Reviewer: [email or web address] Initial Review Date: 09/02/2020 Generated: 09/02/20 1:27 pm DCPIA - Discharge Planning Initial Assessment Updated by [email or web address]: Adelina Jordan on 09/02/20 12:26 pm * Is the patient Alert and Oriented? Yes * How many steps to enter\exit or inside your home? 0/1 * PCP Dr. Steward * [facility] * Preadmission Environment Home with Family * ADLs Independent * Equipment CPAP * List name and contact numbers for known caregivers / representatives who currently or will assist patient after discharge: Bhyy - [phone] * Verbal permission to speak to the caregivers and representatives has been obtained from the patient. Yes * Community resources currently utilized None * Please name any agencies selected above. CPAP supplies via mail from [facility] * Additional services required to return to the preadmission environment? No * Can the patient safely return to the preadmission environment? Yes * Has this patient been hospitalized within the prior 30 days at any hospital? No Patient Name: ROBER ANDINO Page [phone] at 1227 All edits/amendments must be made on the electronic document DICTATION DATE: 09/02/20 1227 COMPUTER HARDWARE DEVELOPER: KYLEE 09/02/20 1227 RPT#: [id number] DC DATE: STATUS: ADM IN [facility] [address] [place] [address] END OF REPORT
--- NOTE | 2020-09-02 12:35 | MORECARE ---
CASE MANAGEMENT DISCHARGE SUMMARY PATIENT: ROBER ANDINO UNIT: [id number] ADM DATE: 08/30/20 AGE: 55 : 63 SEX: F ROOM/BED: D.8008 AUTHOR: MERYL BOWMAN PHYSICIAN: REFERRING PHYSICIAN: MARIE SOTO MD DATE OF SERVICE: 09/02/20 Discharge Plan Patient Name: ROBER ANDINO Facility: [facility]:[place] : 1965 Planned Disposition: Home Anticipated Discharge Date: Discharge Date: Expected LOS: Initial Reviewer: [email or web address] Initial Review Date: 09/02/2020 Generated: 09/02/20 1:34 pm Comments DCP- Discharge Planning Updated by [email or web address]: Adelina Jordan on 09/02/20 11:[address] Patient Name: ROBER ANDINO Admission Status: ER Accout number: [id number] Admission Date: 08-30-2020 : 1965 Admission Diagnosis:FEVER, UNSPECIFIED Attending: MARIE SOTO Current LOS: 3 Anticipated DC Date: Planned Disposition: Home Primary Insurance: [facility] [employer] Discharge Planning Comments: CM called patient to complete initial dc planning assessment. CM educated patient on the CM role and verbal consent given by patient to complete assessment. CM verified patient's address, phone number, and emergency contact phone numbers. Patient lives at home with her spouse. At discharge patient plans to return and feels this is a safe discharge. CM discussed availability of home health, rehab services, and medical equipment. Patient declines home health or need for rehab. Patient states she has a CPAP from [facility] and receives supplies via mail. States she does not have oxygen, but would like oxygen. She does not have a qualifying oxygen saturation for oxygen. I discussed an overnight pulse ox and she would like to use [facility] for that. I will obtain order from Dr. Meléndez and notify [facility]. Transportation provider at discharge will be her spouse. CM will continue to follow and will assist as needed with dc plans/needs. Special Programs Director: Adelina Jordan DCPIA - Discharge Planning Initial Assessment Updated by [email or web address]: Adelina Jordan on 09/02/20 12:26 pm * Is the patient Alert and Oriented? Yes * How many steps to enter\exit or inside your home? 0/1 * PCP Dr. Steward * [facility] * Preadmission Environment Home with Family * ADLs Independent * Equipment CPAP * List name and contact numbers for known caregivers / representatives who currently or will assist patient after discharge: Hxtt - [phone] * Verbal permission to speak to the caregivers and representatives has been obtained from the patient. Yes * Community resources currently utilized None * Please name any agencies selected above. CPAP supplies via mail from [facility] * Additional services required to return to the preadmission environment? No * Can the patient safely return to the preadmission environment? Yes * Has this patient been hospitalized within the prior 30 days at any hospital? No External Providers External Provider: Tunde Louise Contact Date: Service Request Date: Service Type: Resolution: Reviewer: Comments: Coverage Notice Reviewer: [email or web address] Yessi Jordan Notice Issued Date-Time: 09/02/2020 12:33 Notice Type: Patient Choice Letter Notice Delivered To: Patient Relationship to Patient: Self Air Chipper Name: Delivery Method: PHONE - Phone Meredith Days: Prior Verbal Notification: Recipient Understood Notice: Yes Recipient Signature: Med Rec Note Co-signed by Attending: Coverage Notice Comment: FLORENCIA FOR [facility] Last DP export: 09/02/20 11:27 a Patient Name: ROBER ANDINO Page [phone] at 1235 All edits/amendments must be made on the electronic document DICTATION DATE: 09/02/20 1234 VINYL FLOORING INSTALLER: KYLEE 09/02/20 1234 RPT#: [id number] DC DATE: STATUS: ADM IN [facility] [address] [place] [address] END OF REPORT
--- NOTE | 2020-09-02 15:03 | NUR ---
RETURNED FROM CT WITH ANTIBIOTIC DISCONNECTED, THIS WAS NOT DISCONNECTED BY A NURSE AND ABT ARE TIMED TO KEEP IN THE BLOODSTREAM AT AN EFFECTIVE LEVEL, PSYCH ARNP AWARE.
--- NOTE | 2020-09-02 23:44 | NUR ---
REPORT RECEIVED, WILL CONT POC. A&O, UP IN BED WATCHING TV. NO S/S OF DISTRESS OBSERVED. RR EVEN AND UNLABORED ON 2 L. PT DENIES NEEDS AT THIS TIME. BED LOCKED AND LOWERED, CL IN REACH. ASSESSMENT COMPLTED AT THIS TIME. WILL CONT TO MONITOR.
[2020-09-03 05:00] VITALS: BP 119/51
--- NOTE | 2020-09-03 06:20 | NUR ---
22G PERIPHERAL IV PLACED ON L FA.
[2020-09-03 06:28] LABS: BASOPHILS 0.5 % (0-2); EOSINOPHILS 2.4 % (0-7); HEMATOCRIT 31.2 % (36.0-48.0); HEMOGLOBIN 9.9 g/dL (12-16); IMMATURE GRANULOCYTES 1.4 % (0-5); LYMPHOCYTE ABS# 1.47 10x3/uL (1.18-3.74); LYMPHOCYTES 25.3 % (15-50); MCH 26.1 pg (26.0-34.0); MCHC 31.7 g/dL (31.0-37.0); MCV 82.1 fL (80.0-100.0); MEAN PLATELET VOLUME 10.3 fL (7.4-10.4); MONOCYTES 7.2 % (2-11); NEUTROPHIL ABS# 3.67 10x3/uL (1.56-6.13); NEUTROPHILS 63.2 % (40-80); PLATELET COUNT 287 10x3/uL (130-400); RDW 14.6 % (11.5-14.5); WBC 5.8 10x3/uL (4.8-10.8)
[2020-09-03 06:52] LABS: ALBUMIN 2.6 g/dL (3.4-5.0); BILIRUBIN - TOTAL 0.34 mg/dL (0.2-1.3); CALCIUM 9.1 mg/dL (8.5-10.1); CREATININE - SERUM 1.4 mg/dL (0.6-1.3); PHOSPHOROUS 3.6 mg/dL (2.5-4.9); PROTEIN - SERUM 6.6 g/dL (6.4-8.2)
--- NOTE | 2020-09-03 07:20 | NUR ---
LYING IN BED WITH EYES CLOSED, RESPIRATION SLOW/SHALLOW/UNEVEN, ROUSES EASILY WITH VERBAL STIMULUS, T/R SELF AD DELMA, CONT OF B/B WITH BRPs PER SELF AD DELMA, DENIES PAIN/OTHER DISCOMFORT AT THIS TIME, CALL LIGHT/PHONE/WATER WITHIN REACH, NO S/S OF ACUTE DISTRESS OBSERVED.
[2020-09-03 07:34] VITALS: BP 139/71
[2020-09-03 11:06] VITALS: BP 159/77
[2020-09-03] MEDS ORDERED: ZITHROMAX250 MG PO (12:42)
[2020-09-03] MEDS ORDERED: COZAAR50 MG PO (12:43)
[2020-09-03] MEDS ORDERED: VENTOLIN HFA [SP8 GM INH (12:43)
[2020-09-03] MEDS ORDERED: ZINC-220220 MG PO (12:44)
[2020-09-03] MEDS ORDERED: SINGULAIR10 MG PO (12:44)
[2020-09-03] MEDS ORDERED: TESSALON PERLE100 MG PO (12:44)
[2020-09-03] MEDS ORDERED: DULERA 100 MCG8.8 GM INH (12:44)
[2020-09-03] MEDS ORDERED: COLACE100 MG PO (12:45)
[2020-09-03] MEDS ORDERED: MELATONIN 3 MG1 TAB PO (12:45)
[2020-09-03] MEDS ORDERED: MUCINEX600 MG PO (12:45)
[2020-09-03] MEDS ORDERED: FUROSEMIDE40 MG PO (12:47)
[2020-09-03] MEDS ORDERED: OMNICEF300 MG PO (12:47)
[2020-09-03] MEDS ORDERED: VITAMIN C500 M1 PO (12:47)
[2020-09-03] MEDS ORDERED: ZOFRAN ODT4 MG/UDTAB PO (13:16)
--- NOTE | 2020-09-07 00:28 | MORECARE ---
CASE MANAGEMENT DISCHARGE SUMMARY PATIENT: ROBER ANDINO UNIT: [id number] ADM DATE: 08/30/20 AGE: 55 : 63 SEX: F ROOM/BED: D.0308 AUTHOR: MERYL BOWMAN PHYSICIAN: REFERRING PHYSICIAN: MARIE SOTO MD DATE OF SERVICE: 09/07/20 Discharge Plan Patient Name: ROBER ANDINO Facility: [facility]:Telephone : 1965 Planned Disposition: Home Anticipated Discharge Date: Discharge Date: 09/03/2020 Expected LOS: Initial Reviewer: [id number] Initial Review Date: 09/02/2020 Generated: 09/07/20 1:27 am Comments DCP- Discharge Planning Updated by [email or web address]: Adelina Jordan on 09/02/20 11:[address] Patient Name: ROBER ANDINO Admission Status: ER Accout number: [id number] Admission Date: 08-30-2020 : 1965 Admission Diagnosis:FEVER, UNSPECIFIED Attending: MARIE SOTO Current LOS: 3 Anticipated DC Date: Planned Disposition: Home Primary Insurance: [facility] [employer] Discharge Planning Comments: CM called patient to complete initial dc planning assessment. CM educated patient on the CM role and verbal consent given by patient to complete assessment. CM verified patient's address, phone number, and emergency contact phone numbers. Patient lives at home with her spouse. At discharge patient plans to return and feels this is a safe discharge. CM discussed availability of home health, rehab services, and medical equipment. Patient declines home health or need for rehab. Patient states she has a CPAP from [employer] and receives supplies via mail. States she does not have oxygen, but would like oxygen. She does not have a qualifying oxygen saturation for oxygen. I discussed an overnight pulse ox and she would like to use [facility] for that. I will obtain order from Dr. Meléndez and notify [facility]. Transportation provider at discharge will be her spouse. CM will continue to follow and will assist as needed with dc plans/needs. Appeals Board Referee: Adelina Jordan DCPIA - Discharge Planning Initial Assessment Updated by [email or web address]: Adelina Jordan on 09/02/20 12:26 pm * Is the patient Alert and Oriented? Yes * How many steps to enter\exit or inside your home? 0/1 * PCP Dr. Steward * Pharmacy [facility] * Preadmission Environment Home with Family * ADLs Independent * Equipment CPAP * List name and contact numbers for known caregivers / representatives who currently or will assist patient after discharge: [employer] - [phone] * Verbal permission to speak to the caregivers and representatives has been obtained from the patient. Yes * Community resources currently utilized None * Please name any agencies selected above. CPAP supplies via mail from [facility] * Additional services required to return to the preadmission environment? No * Can the patient safely return to the preadmission environment? Yes * Has this patient been hospitalized within the prior 30 days at any hospital? No Coverage Notice Reviewer: [id number] Yessi Jordan Notice Issued Date-Time: 09/02/2020 12:33 Notice Type: Patient Choice Letter Notice Delivered To: Patient Relationship to Patient: Self Games Dealer Name: Delivery Method: PHONE - Phone Meredith Days: Prior Verbal Notification: Recipient Understood Notice: Yes Recipient Signature: Med Rec Note Co-signed by Attending: Coverage Notice Comment: [facility] Reviewer: [id number] Yessi Truong Notice Issued Date-Time: 09/03/2020 15:15 Notice Type: IM Discharge Notice Notice Delivered To: Patient Relationship to Patient: Games Dealer Name: Delivery Method: HAND - Hand Delivered Meredith Days: Prior Verbal Notification: Recipient Understood Notice: Yes Recipient Signature: Yes Med Rec Note Co-signed by Attending: Coverage Notice Comment: Last DP export: 09/02/20 11:35 a Patient Name: ROBER ANDINO Page [phone] at [phone] All edits/amendments must be made on the electronic document DICTATION DATE: 09/07/2026 NURSING CENTER TUTOR: KYLEE 09/07/2026 RPT#: [id number] DC DATE:09/03/20 STATUS: DIS IN [facility] [address] [place] [address] END OF REPORT
== END 2020-09-03 17:39 | disposition home or self-care (01) | DRG 864 ==
LOC: D.ER 23:11 → D.EDHOLD 08-30 00:49 → D.M2 08-30 00:49
PROVIDERS: Emergency Medicine; Family Medicine; ADMIT Emergency Medicine; ATTEND Emergency Medicine
DX: R50.9 Fever, unspecified (principal); Z68.42 Body mass index [BMI] 45.0-49.9, adult; J44.9 Chronic obstructive pulmonary disease, unspecified; D64.9 Anemia, unspecified; E11.65 Type 2 diabetes mellitus with hyperglycemia; E03.9 Hypothyroidism, unspecified; E87.6 Hypokalemia; F41.9 Anxiety disorder, unspecified; F32.9 Major depressive disorder, single episode, unspecified; G47.33 Obstructive sleep apnea (adult) (pediatric); E66.01 Morbid (severe) obesity due to excess calories; K21.9 Gastro-esophageal reflux disease without esophagitis; E11.22 Type 2 diabetes mellitus with diabetic chronic kidney disease; I12.9 Hypertensive chronic kidney disease with stage 1 through stage 4 chronic kidney disease, or unspecified chronic kidney disease; N18.9 Chronic kidney disease, unspecified; D63.1 Anemia in chronic kidney disease; Z87.891 Personal history of nicotine dependence

== ENCOUNTER 2020-09-07 08:00 | Outpatient (CLI) | payer MEDICARE, MEDICAID ==
[2020-08-30 13:01] VITALS: BMI 45.9
[~2020-09-07 08:00] MED LIST changes: +COLACE100 MG PO; +COZAAR50 MG PO; +DULERA 100 MCG8.8 GM INH; +FUROSEMIDE40 MG PO; +HUMULIN 70100 UNIT/1 SC; +MELATONIN 3 MG1 TAB PO; +MUCINEX600 MG PO; +OMNICEF300 MG PO; +SINGULAIR10 MG PO; +TESSALON PERLE100 MG PO; +VENTOLIN HFA [SP8 GM INH; +VITAMIN C500 M1 PO; +ZINC-220220 MG PO; +ZITHROMAX250 MG PO; +ZOFRAN ODT4 MG/UDTAB PO
[2020-09-08 10:12] LABS: ANA REFLEX - DIRECT Negative (Negative)
[2020-09-09 10:12] LABS: IMMUNOGLOBULIN E 18 IU/mL (6-495)
[2020-09-09 19:08] LABS: ANGIOTENSIN CONVERTING ENZYME 34 U/L (14-82)
[2020-09-11 17:08] LABS: FUNGAL - ASP FLAVUS Negative (Neg:<1:1); FUNGAL - ASP NIGER Negative (Neg:<1:1); FUNGAL - ASPER FUMIGATUS Negative (Neg:<1:1)
== END 2020-09-07 08:01 | disposition home or self-care (01) ==
LOC: D.MAMMO 08:00
PROVIDERS: ATTEND Family Medicine
DX: Z12.31 Encounter for screening mammogram for malignant neoplasm of breast (principal)